=== PATIENT | male | born 1990 | race Asian ===

== ENCOUNTER 2018-02-06 07:17 | Inpatient (IN) | payer OTHER ==
[2018-02-06] MEDS: KETOROLAC 30 MG INJ IM (07:59)
[2018-02-06 08:11] LABS: WHITE BLOOD COUNT 14.7 10^3/ul (4.8-10.8)
[2018-02-06 08:11] LABS: ABNORMAL IP MESSAGE 1; HEMATOCRIT 46.2 % (42.0-52.0); HEMOGLOBIN 14.3 g/dl (14.0-18.0); MEAN CORPUSCULAR VOLUME 67.8 fl (82.0-101.0); MEAN PLATELET VOLUME 9.6 fl (7.4-10.4); PLATELET COUNT 331 10^3/UL (140-415); POSITIVE DIFF @See below; RED BLOOD COUNT 6.81 10^6/ul (4.70-6.10); RED CELL DISTRIBUTION WIDTH 17.4 % (11.5-14.5)
[2018-02-06 08:14] LABS: ADD MAN DIFF? YES
[2018-02-06 08:33] LABS: ALANINE AMINOTRANSFERASE 19 IU/L (13-69); ALBUMIN 4.9 g/dl (3.3-4.9); ALBUMIN/GLOBULIN RATIO 1.32; ALKALINE PHOSPHATASE 65 IU/L (42-121); ANION GAP 15 (8-16); ASPARTATE AMINO TRANSFERASE 19 IU/L (15-46); BILIRUBIN,INDIRECT 0.8 mg/dl (0-1.1); BILIRUBIN,TOTAL 0.8 mg/dl (0.2-1.3); BLOOD UREA NITROGEN 15 mg/dl (7-20); CALCIUM 10.2 mg/dl (8.4-10.2); CARBON DIOXIDE 28 mmol/L (21-31); CHLORIDE 103 mmol/L (97-110); CREATININE 1.16 mg/dl (0.61-1.24); GLUCOSE 109 mg/dl (70-220); LIPASE 72 U/L (23-300); POTASSIUM 4.2 mmol/L (3.5-5.1); SODIUM 142 mmol/L (135-144); TOTAL PROTEIN 8.6 g/dl (6.1-8.1)
[2018-02-06 08:37] LABS: ADD UMIC YES; UR ASCORBIC ACID NEGATIVE (NEGATIVE); UR BACTERIA FEW /HPF (NONE SEEN); UR BILIRUBIN (Dip) NEGATIVE (NEGATIVE); UR BLOOD (Dip) 3+ mg/dL (NEGATIVE); UR CLARITY TURBID (CLEAR); UR COLOR AMBER (YELLOW); UR GLUCOSE (Dip) NEGATIVE (NEGATIVE); UR KETONES (Dip) 1+ mg/dL (NEGATIVE); UR LEUKOCYTE ESTERASE (Dip) NEGATIVE Leu/ul (NEGATIVE); UR MUCUS MODERATE /HPF (NONE SEEN); UR NITRITE (Dip) NEGATIVE (NEGATIVE); UR RBC > 182 /HPF (0-5); UR SPECIFIC GRAVITY (Dip) 1.026 (1.003-1.030); UR TOTAL PROTEIN (Dip) 2+ mg/dl (NEGATIVE); UR UROBILINOGEN (Dip) NEGATIVE (NEGATIVE); UR WBC 139 /HPF (0-5)
[2018-02-06 09:26] LABS: BAND NEUTROPHILS #M 1.6 10^3/ul (0.0-0.6); BAND NEUTROPHILS % (M) 11 % (0-4); EOSINOPHILS % (M) 1 % (0-7); GIANT THROMBO% (M) 1 % (0-0); LYMPHOCYTES #M 1.4 10^3/ul (0.8-2.9); LYMPHOCYTES % (M) 10 % (15-51); MONOCYTE #M 0.7 10^3/ul (0.3-0.9); MONOCYTES % (M) 5 % (0-11); PLATELET ESTIMATE NORMAL; REACTIVE LYMPHOCYTES #M 0.4 10^3/ul (0.0-0.0); REACTIVE LYMPHOCYTES% (M) 3 % (0-0); SEG NEUT #M 10.5 10^3/ul (1.6-7.5); SEGMENTED NEUTROPHILS (M) % 70 % (39-77); SMUDGE%M 50 % (0-0)
[2018-02-06] MEDS: morphine 4 MG/ML VIAL IV (10:30)
[2018-02-06] MEDS: ONDANSETRON 4 MG INJ IV (10:30)
[2018-02-06] MEDS: TAMSULOSIN (SR) 0.4 MG CAP PO ×2 (10:30→21:42)
[2018-02-06] MEDS: CIPROFLOXACIN 400MG/D5W 200 ML IVPB (10:30)
[2018-02-06] MEDS: SOD CHLORIDE 0.9% 1,000 ML IV ×4 (10:30→21:48)
[2018-02-06] MEDS ORDERED: NACL 0.9% 3 ML SYG IV (12:00)
[2018-02-06] MEDS ORDERED: ONDANSETRON 4 MG INJ IV ×2 (12:00)
[2018-02-06] MEDS ORDERED: ACETAMINOPHEN 325 MG TAB PO ×2 (12:00)
[2018-02-06] MEDS ORDERED: KETOROLAC 30 MG INJ IV (12:00)
[2018-02-06] MEDS: CEFTRIAXONE 1 GM/50 ML (PMX) 50 ML IVPB (13:00)
[2018-02-07 05:11] LABS: ADD MAN DIFF? NO
[2018-02-07 05:17] LABS: WHITE BLOOD COUNT 8.5 10^3/ul (4.8-10.8)
[2018-02-07 05:17] LABS: BASOPHIL # 0.1 10^3/ul (0.0-0.1); BASOPHILS % 0.7 % (0.0-2.0); EOSINOPHILS # 0.2 10^3/ul (0.0-0.5); HEMATOCRIT 38.2 % (42.0-52.0); HEMOGLOBIN 11.9 g/dl (14.0-18.0); LYMPHOCYTES # 2.8 10^3/ul (0.8-2.9); MEAN CORPUSCULAR HEMOGLOBIN 21.5 pg (29.0-33.0); MEAN CORPUSCULAR HGB CONC 31.2 g/dl (32.0-37.0); MONOCYTE # 0.7 10^3/ul (0.3-0.9); MONOCYTES % 8.5 % (0.0-11.0); NEUTROPHIL # 4.7 10^3/ul (1.6-7.5); NEUTROPHILS % 55.1 % (39.0-77.0); PLATELET COUNT 283 10^3/UL (140-415); RED BLOOD COUNT 5.54 10^6/ul (4.70-6.10); RED CELL DISTRIBUTION WIDTH 15.4 % (11.5-14.5)
[2018-02-07 05:36] LABS: INR 1.09; PARTIAL THROMBOPLASTIN TIME 32.5 Sec (25.0-35.0); PROTIME 14.2 Sec (11.9-14.9); PT RATIO 1.1
[2018-02-07 05:40] LABS: ALANINE AMINOTRANSFERASE 20 IU/L (13-69); ALBUMIN 3.5 g/dl (3.3-4.9); ALBUMIN/GLOBULIN RATIO 1.29; ALKALINE PHOSPHATASE 43 IU/L (42-121); ANION GAP 12 (8-16); ASPARTATE AMINO TRANSFERASE 15 IU/L (15-46); BILIRUBIN,INDIRECT 0.4 mg/dl (0-1.1); BILIRUBIN,TOTAL 0.4 mg/dl (0.2-1.3); BLOOD UREA NITROGEN 11 mg/dl (7-20); CALCIUM 8.9 mg/dl (8.4-10.2); CARBON DIOXIDE 27 mmol/L (21-31); CHLORIDE 108 mmol/L (97-110); CREATININE 1.08 mg/dl (0.61-1.24); GLUCOSE 99 mg/dl (70-220); MAGNESIUM 1.8 mg/dl (1.7-2.5); POTASSIUM 4.3 mmol/L (3.5-5.1); SODIUM 143 mmol/L (135-144); TOTAL PROTEIN 6.2 g/dl (6.1-8.1)
[2018-02-07] MEDS: SOD CHLORIDE 0.9% 1,000 ML IV ×2 (07:21→15:06)
[2018-02-07] MEDS: TAMSULOSIN (SR) 0.4 MG CAP PO ×2 (08:23→21:56)
[2018-02-07] MEDS: CEFTRIAXONE 1 GM/50 ML (PMX) 50 ML IVPB (12:07)
[2018-02-07 13:01] LABS: IRON 52 ug/dl (35-150)
[2018-02-07 13:10] LABS: % IRON SATURATION 19 % SAT (22-52); TOTAL IRON BINDING CAPACITY 269 ug/dl (241-421)
[2018-02-07] MEDS ORDERED: DIPHENHYDRAMINE 50 MG INJ IV (18:00)
[2018-02-07] MEDS ORDERED: HYDROmorphONE 1 MG/5 ML IV SYRINGE IV ×3 (18:00)
[2018-02-07] MEDS ORDERED: hydrALAzine 20 MG INJ IV (18:00)
[2018-02-07] MEDS ORDERED: ONDANSETRON 4 MG INJ IV (18:00)
[2018-02-07] MEDS ORDERED: MEPERIDINE 25 MG INJ IV (18:00)
[2018-02-07] MEDS ORDERED: FENTAnyl 50 MCG/ML VIAL IV ×3 (18:00)
[2018-02-07] MEDS ORDERED: LABETALOL HCL 20MG INJ IV (18:00)
[2018-02-07] MEDS ORDERED: PROCHLORPERAZINE 10 MG INJ IV (18:00)
[2018-02-07] MEDS ORDERED: MIDAZOLAM 1 MG/ML 2 ML INJ (18:05)
[2018-02-07] MEDS ORDERED: LIDOCAINE 2% (SDV) 5 ML INJ (18:14)
[2018-02-07] MEDS ORDERED: PROPOFOL 20 ML ×2 (18:14→18:15)
[2018-02-07] MEDS ORDERED: DEXAMETHASONE 4 MG/ML 1 ML INJ (18:15)
[2018-02-07] MEDS ORDERED: FAMOTIDINE 20 MG INJ (18:15)
[2018-02-07] MEDS ORDERED: CEFAZOLIN 1 GM INJ (18:15)
[2018-02-07] MEDS ORDERED: ONDANSETRON 4 MG INJ (18:15)
[2018-02-07] MEDS ORDERED: FENTAnyl 50 MCG/ML VIAL (18:22)
[2018-02-08] MEDS: SOD CHLORIDE 0.9% 1,000 ML IV ×2 (04:00→11:37)
[2018-02-08 05:22] LABS: ADD MAN DIFF? NO
[2018-02-08 05:25] LABS: BASOPHILS % 0.2 % (0.0-2.0); HEMATOCRIT 42.4 % (42.0-52.0); IMMATURE GRANS #M 0.04 10^3/ul; IMMATURE GRANS % (M) 0.4 %; LYMPHOCYTES # 1.5 10^3/ul (0.8-2.9); LYMPHOCYTES % 16.5 % (15.0-51.0); MEAN CORPUSCULAR HEMOGLOBIN 21.2 pg (29.0-33.0); MEAN CORPUSCULAR HGB CONC 30.7 g/dl (32.0-37.0); MEAN CORPUSCULAR VOLUME 69.3 fl (82.0-101.0); MEAN PLATELET VOLUME 9.9 fl (7.4-10.4); MONOCYTE # 0.4 10^3/ul (0.3-0.9); MONOCYTES % 4.7 % (0.0-11.0); NEUTROPHIL # 7.1 10^3/ul (1.6-7.5); NEUTROPHILS % 78.2 % (39.0-77.0); PLATELET COUNT 317 10^3/UL (140-415); RED BLOOD COUNT 6.12 10^6/ul (4.70-6.10); RED CELL DISTRIBUTION WIDTH 15.4 % (11.5-14.5)
[2018-02-08 05:53] LABS: ANION GAP 14 (8-16); BLOOD UREA NITROGEN 9 mg/dl (7-20); CALCIUM 9.5 mg/dl (8.4-10.2); CARBON DIOXIDE 27 mmol/L (21-31); CHLORIDE 105 mmol/L (97-110); GLUCOSE 123 mg/dl (70-220); MAGNESIUM 1.5 mg/dl (1.7-2.5); POTASSIUM 4.5 mmol/L (3.5-5.1); SODIUM 141 mmol/L (135-144)
[2018-02-08] MEDS: TAMSULOSIN (SR) 0.4 MG CAP PO (08:36)
[2018-02-08] MEDS: MAGNESIUM CHLORIDE (SR) 64 MG TAB PO (10:21)
[2018-02-08] MEDS: CEFTRIAXONE 1 GM/50 ML (PMX) 50 ML IVPB (12:34)
== END 2018-02-08 14:00 | disposition home or self-care (01) | DRG 670 ==
LOC: MS1 02-07 20:15 → FTE 07:17 → MS3 11:35
PROC: 0TC78ZZ Extirpation of Matter from Left Ureter, Via Natural or Artificial Opening Endoscopic (ICD-10-PCS; principal; 2018-02-07 17:30)
PROC: 0T778DZ Dilation of Left Ureter with Intraluminal Device, Via Natural or Artificial Opening Endoscopic (ICD-10-PCS; 2018-02-07 17:30)
DX: N13.6 Pyonephrosis (principal); E66.9 Obesity, unspecified; Z68.31 Body mass index [BMI] 31.0-31.9, adult
CPT/HCPCS: 36415; 71045; 74018; 74176; 74430; 76775; 80048; 80053; 81001; 82728; 83540; 83690; 83735; 84100; 85025; 85610; 85730; 87086; 88300; 96372; 96374; 99285-25